=== PATIENT | male | born 1995 | race Hispanic/Latino ===

== ENCOUNTER 2020-06-16 10:16 | Emergency (ER) | payer SELFPAY ==
[2020-06-16] MEDS ORDERED: IBUPROFEN600 MG PO (11:31)
[2020-06-16] MEDS ORDERED: ERYTHROMYCIN O3.5 GM OS (11:31)
[2020-06-16 11:43] VITALS: BP 135/82
== END 2020-06-16 11:50 | disposition home or self-care (01) | DRG 125 ==
LOC: ED 10:16
DX: H10.9 Unspecified conjunctivitis (principal); F17.200 Nicotine dependence, unspecified, uncomplicated